=== PATIENT | female | born 1980 | race Two or more races ===

== ENCOUNTER 2016-10-09 23:49 | Emergency (ER) | payer OTHER ==
[2016-10-09 23:45] LABS: BASOPHIL# 0.1 X10e3 (0-0.3); BASOPHIL% 0.8 % (0-2.5); EOSINOPHIL# 0.4 X10e3 (0-0.7); EOSINOPHIL% 5.3 % (0.0-7.0); HEMATOCRIT 38.9 % (35.0-45.0); LYMPHOCYTE# 2.8 X10e3 (1.0-3.5); LYMPHOCYTE% 37.2 % (17.0-45.0); MEAN CELL VOLUME 88.2 FL (83-96); MEAN CORPUSCULAR HEMOGLOBIN 29.4 PG (28-34); MEAN CORPUSCULAR HGB CONC 33.3 g/dL (30-36); MEAN PLATELET VOLUME 9.2 FL (6.5-11.5); MONOCYTE# 0.5 X10e3 (0-1.0); MONOCYTE% 6.9 % (3.0-12.0); NEUTROPHIL# 3.8 X10e3 (1.5-7.1); NEUTROPHIL% 49.8 % (40-75); PLATELET COUNT 251 X10e3 (140-420); RED BLOOD COUNT 4.41 X10e (3.90-5.30); RED CELL DISTRIBUTION WIDTH 13.9 % (11.0-15.5); WHITE BLOOD COUNT 7.6 X10e3 (4.0-10.5)
[2016-10-09 23:48] LABS: DIFF IND NO
[2016-10-10 00:06] LABS: ALKALINE PHOSPHATASE 63 U/L (32-92); ALT (SGPT) 17 U/L (10-40); AMYLASE 27 U/L (0-46); AST (SGOT) 19 U/L (10-42); BILIRUBIN, DIRECT 0.1 mg/dL (0.0-0.2); BILIRUBIN,INDIRECT 0.3 mg/dL (0.0-0.9); BILIRUBIN,TOTAL 0.4 mg/dL (0.2-2.0); BLOOD UREA NITROGEN 13 mg/dL (9-23); BUN/CREATININE RATIO 16.25; CALCIUM SERUM 8.5 mg/dL (8.4-10.2); CARBON DIOXIDE 28 mmol/L (22-31); CHLORIDE 103 mmol/L (100-111); CREATININE SERUM 0.8 mg/dL (0.6-1.4); GLOM FILT RATE Estimated ABOVE60 mL/min (>60); GLUCOSE FASTING 95 mg/dL (70-110); LIPASE 19 U/L (22-51); POTASSIUM 4.2 mmol/L (3.5-5.1); PROTEIN TOTAL SERUM 7.1 g/dL (6.0-8.3); SODIUM 137 mmol/L (135-145)
== END 2016-10-10 01:35 | disposition home or self-care (01) ==
LOC: CED 23:49
PROVIDERS: Emergency Medicine
DX: R10.9 Unspecified abdominal pain (principal)
CPT/HCPCS: 36415; 80048; 80076; 82150; 83690; 85025; 99284

== ENCOUNTER 2016-10-17 17:20 | Emergency (ER) | payer OTHER | END 2016-10-17 17:23 | disposition home or self-care (01) | LOC: SED 17:20 | DX: R10.9 Unspecified abdominal pain (principal); G89.29 Other chronic pain | CPT/HCPCS: 99283 ==

== ENCOUNTER 2017-01-03 11:07 | Emergency (ER) | payer OTHER ==
[2017-01-03] MEDS ORDERED: NO MEDICATIONS (11:10)
[2017-01-03 12:10] LABS: URINE SOURCE CLEAN CATCH
[2017-01-03 12:12] LABS: URINE APPEARANCE CLEAR; URINE BILIRUBIN NEG (NEG); URINE BLOOD 2+ (NEG); URINE COLOR YELLOW; URINE GLUCOSE NEG (NORM); URINE KETONE NEG (NEG); URINE LEUKOCYTE ESTERASE TRACE (NEG); URINE NITRATE NEG (NEG); URINE PROTEIN NEG (NEG); URINE UROBILINOGEN 0.2 MG/DL (NORM)
[2017-01-03 12:13] LABS: MICRO INDICATED? YES
[2017-01-03 12:24] LABS: CULTURE INDICATED? YES; URINE BACTERIA 2+ (NEG); URINE SQUAMOUS EPITHELIAL CELL MANY /[HPF]
== END 2017-01-03 13:13 | disposition home or self-care (01) ==
LOC: SED 11:07
PROVIDERS: Nurse Practitioner
DX: N92.6 Irregular menstruation, unspecified (principal); R10.11 Right upper quadrant pain; R10.31 Right lower quadrant pain; Z98.890 Other specified postprocedural states
CPT/HCPCS: 81003; 84703; 87086; 99284

== ENCOUNTER 2017-02-13 11:28 | Emergency (ER) | payer OTHER ==
[~2017-02-13 11:28] MED LIST: NO MEDICATIONS
== END 2017-02-13 13:23 | disposition home or self-care (01) ==
LOC: SED 11:28
DX: J30.9 Allergic rhinitis, unspecified (principal)
CPT/HCPCS: 99283

== ENCOUNTER 2017-03-01 23:24 | Emergency (ER) | payer OTHER ==
[~2017-03-01] VITALS: Ht 167.6 cm; Wt 95.2 kg
--- NOTE | ~2017-03-01 | CT2 ---
[facility] A Service of [facility] RADIOLOGY TEXT RESULTS PATIENT: ELVIRA MARCUS LOCATION: [facility] : 78 UNIT #: [id number] AGE: [address]: Gualberto Will MD SEX: F ORDER DR: [id number] [facility] [address], [place] [address] [id number] MR#: [id number] Acc #: [id number] NAME: ELVIRA MARCUS : 1980 SEX: F STUDY DATE/TIME: 03/02/2017 03:03 UNIT: [facility] ROOM: STUDY DESCRIPTION: CT Abd and Pelv W Cont Attending Physician: Gualberto Will M.D. Ordering Physician: Ed Doctor [id number] [facility] Primary Care Physician: Primary Care Physician No MEDICAL IMAGING REPORT This report is preliminary unless electronic signature is present EXAM Abdomen and pelvis CT, 03/02 at 03:03 INDICATIONS Abdominal pain for 3 days with nausea. TECHNIQUE Axial images were obtained through the abdomen and pelvis following oral and IV contrast administration. Multiplanar reformats were obtained. This CT exam was performed with one or more of the following radiation dose reduction techniques: automatic exposure control, adjustment of mA and/or kV according to patient size, and iterative reconstruction. COMPARISON No comparison FINDINGS ABDOMEN: There is some mild dependent atelectasis in the lung bases. Gallbladder unremarkable. No biliary obstruction. Solid organs are within normal limits. No adenopathy or free fluid. GI tract is normal. PELVIS: The appendix is normal. The remainder of the GI tract is normal as well. No free fluid is seen. Urinary bladder is normal. The solid pelvic organs are normal. IMPRESSION 1. No acute findings in the abdomen or pelvis. 2. Normal GI tract, including the appendix. 3. Normal nonobstructed kidneys. Dictated by... Miguel Madrid Jr., M.D. [facility] A Service of [facility] RADIOLOGY TEXT RESULTS PATIENT: ELVIRA MARCUS LOCATION: [facility] : 78 UNIT #: [id number] AGE: [address]: Gualberto Will MD SEX: F ORDER DR: THIS IS AN ELECTRONICALLY VERIFIED REPORT Miguel Madrid Jr., M.D. at 03/02/2017 8:51 PM [place] TD: 03/02/2017 12:40 JOB #: [id number] MEDICAL IMAGING REPORT Page 1 of 1 COPY
[2017-03-02 00:08] LABS: URINE SOURCE CLEAN CATCH
[2017-03-02 00:16] LABS: URINE APPEARANCE CLEAR; URINE BILIRUBIN NEG (NEG); URINE BLOOD 1+ (NEG); URINE COLOR YELLOW; URINE GLUCOSE NEG (NEG); URINE KETONE TRACE (NEG); URINE LEUKOCYTE ESTERASE TRACE (NEG); URINE NITRATE NEG (NEG); URINE PROTEIN NEG (NEG); URINE SPECIFIC GRAVITY 1.026 (1.003-1.035)
[2017-03-02 00:20] LABS: URBCS1 AUWI 0-2 /[HPF] (0-2); URINE BACTERIA AUWI NEG (NEGATIVE); URINE SQUAMOUS EPITHELIAL CELL NONE SEEN /[HPF]; UWBCS1 AUWI 0-2 (0-5)
[2017-03-02 00:39] LABS: CULTURE INDICATED? NO
[2017-03-02 02:06] LABS: BASOPHIL% 0.4 % (0-2.5); EOSINOPHIL# 0.1 X10e3 (0-0.7); EOSINOPHIL% 0.9 % (0.0-7.0); HEMATOCRIT 39.9 % (35.0-45.0); HEMOGLOBIN 12.8 gm/dL (12.0-16.0); LYMPHOCYTE# 3.6 X10e3 (1.0-3.5); LYMPHOCYTE% 29.4 % (17.0-45.0); MEAN CELL VOLUME 89.2 FL (83-96); MEAN CORPUSCULAR HEMOGLOBIN 28.6 PG (28-34); MEAN PLATELET VOLUME 8.2 FL (6.5-11.5); MONOCYTE# 1.1 X10e3 (0-1.0); MONOCYTE% 8.9 % (3.0-12.0); NEUTROPHIL# 7.4 X10e3 (1.5-7.1); NEUTROPHIL% 60.4 % (40-75); PLATELET COUNT 285 X10e3 (140-420); RED BLOOD COUNT 4.48 X10e (3.90-5.30); RED CELL DISTRIBUTION WIDTH 15.7 % (11.0-15.5); WHITE BLOOD COUNT 12.2 X10e3 (4.0-10.5)
[2017-03-02 02:07] LABS: DIFF IND NO
[2017-03-02 02:29] LABS: ALBUMIN SERUM 3.6 g/dL (3.5-5.0); BILIRUBIN, DIRECT 0.1 mg/dL (0.0-0.2); BILIRUBIN,INDIRECT 0.6 mg/dL (0.0-0.9); BILIRUBIN,TOTAL 0.7 mg/dL (0.2-2.0); BUN/CREATININE RATIO 26.66; CALCIUM SERUM 8.5 mg/dL (8.4-10.2); CREATININE SERUM 0.6 mg/dL (0.6-1.4); GLOM FILT RATE Estimated 116.4 mL/min (>60); POTASSIUM 4.2 mmol/L (3.5-5.1); PROTEIN TOTAL SERUM 6.6 g/dL (6.0-8.3)
== END 2017-03-02 04:56 | disposition home or self-care (01) ==
LOC: CED 23:24
DX: R10.12 Left upper quadrant pain (principal)
CPT/HCPCS: 36415; 74177; 80048; 80076; 81003; 82150; 83690; 84703; 85025; 96361; 96374; 96375; 99284; J2270; J2405; Q9967

== ENCOUNTER 2017-03-04 18:56 | Emergency (ER) | payer OTHER ==
[~2017-03-04] VITALS: Ht 167.6 cm; Wt 95.2 kg
--- NOTE | ~2017-03-04 | EKG ---
PATIENT: ELVIRA MARCUS UNIT #: [id number] Ventricular Rate: 77 BPM Atrial Rate: 77 BPM P-R Interval: 160 ms QRS Duration: 72 ms Q-T Interval: 358 ms QTC Calculation(Bezet): 405 ms P Diana: 44 degrees Calculated R Diana: 13 degrees Calculated T Diana: 18 degrees Diagnosis Line: Normal sinus rhythm Diagnosis Line: Normal ECG Diagnosis Line: Diagnosis Line: Confirmed by MARIANA PEDRAZA MD ([id number]) on Diagnosis Line: 03/06/2017 8:40:48 AM INTERPRETING MD: MILO SALINAS
[2017-03-04] MEDS ORDERED: ONDANSETRON ODT4 MG SL (19:25)
[2017-03-04] MEDS ORDERED: OMEPRAZOLE40 M1 PO (19:25)
[2017-03-04] MEDS ORDERED: DICYCLOMINE HCL20 MG PO (19:26)
[2017-03-04] MEDS ORDERED: PEPCID40 MG PO (19:27)
[2017-03-04 20:55] LABS: URINE SOURCE CLEAN CATCH
[2017-03-04 20:58] LABS: URINE APPEARANCE CLEAR; URINE BILIRUBIN NEG (NEG); URINE BLOOD 2+ (NEG); URINE COLOR YELLOW; URINE GLUCOSE NEG (NORM); URINE KETONE NEG (NEG); URINE LEUKOCYTE ESTERASE NEG (NEG); URINE NITRATE NEG (NEG); URINE PH 5.5 (5-8); URINE PROTEIN NEG (NEG); URINE SPECIFIC GRAVITY >=1.030 (1.003-1.035)
[2017-03-04 21:02] LABS: MICRO INDICATED? YES
[2017-03-04 21:05] LABS: CULTURE INDICATED? NO; URINE BACTERIA NEG (NEG); URINE RBC 25-50 /[HPF] (0-2)
== END 2017-03-04 21:46 | disposition home or self-care (01) ==
LOC: SED 18:56
PROVIDERS: Emergency Medicine
DX: K27.9 Peptic ulcer, site unspecified, unspecified as acute or chronic, without hemorrhage or perforation (principal); Z79.899 Other long term (current) drug therapy
CPT/HCPCS: 81003; 84703; 93005; 99284

== ENCOUNTER 2017-04-29 17:37 | Emergency (ER) | payer OTHER ==
[~2017-04-29 17:37] MED LIST changes: +DICYCLOMINE HCL20 MG PO; +OMEPRAZOLE40 M1 PO; +ONDANSETRON ODT4 MG SL; +PEPCID40 MG PO
== END 2017-04-29 20:20 | disposition home or self-care (01) ==
LOC: SED 17:37
DX: J30.2 Other seasonal allergic rhinitis (principal); Z79.899 Other long term (current) drug therapy
CPT/HCPCS: 96372; 99282; J1100